=== PATIENT | male | born 1950 | race Hispanic/Latino ===

== ENCOUNTER 2019-01-14 07:24 | Day surgery (SDC) | payer BC ==
[2019-01-01 11:03] VITALS: BMI 25.8
[2019-01-14] MEDS ORDERED: Bupivacaine 0.5% 50 ML IJ ONE ×2 (07:42→10:28)
[2019-01-14] MEDS ORDERED: Midazolam 2 MG/2 ML VIAL ONE (09:49)
[2019-01-14] MEDS ORDERED: Succinylcholine 200 mg/10 ml Inj IV ONE (09:49)
[2019-01-14] MEDS ORDERED: Propofol 10 mg/ml Inj (20 ML) ONE (09:49)
[2019-01-14] MEDS ORDERED: Rocuronium 10 mg/ml (5 ml) ONE ×2 (10:12→10:43)
[2019-01-14] MEDS ORDERED: ePHEDrine 50 mg/ml Inj ONE (10:19)
[2019-01-14] MEDS ORDERED: CeFAZolin 1 gm in NS 100ml IVPB ONE (10:26)
[2019-01-14] MEDS ORDERED: Esmolol 100 mg/10ml Inj IV ONE (10:37)
[2019-01-14] MEDS ORDERED: Neostigmine Methylsulfate 3mg/3ml Syringe IV ONE (10:40)
[2019-01-14] MEDS ORDERED: Desflurane Inhalation Anesthetic Liq (240 ml) ONE (10:42)
[2019-01-14] MEDS ORDERED: Oxycodone/Acetaminophen 5/325 mg Tab PO PRN (12:31)
--- NOTE | 2019-01-14 12:34 | PCM.SURG1 ---
Surgeon's Initial Post Op Note - Surgeon's Notes Surgeon: Dr. Key [employer] Operator: Tatyana Johns, PGY-2; Shubham Shabazz PGY-1, OMS -3 Type of Anesthesia: General Endo Anesthesia Administered By: Dr. Alvarado Pre-Operative Diagnosis: Recurrent bilateral inguinal hernias Operative Findings: See op report Post-Operative Diagnosis: Bilateral inguinal hernias Operation Performed: Laparoscopic bilateral inguinal hernia repair with mesh Specimen/Specimens Removed: None Estimated Blood Loss: EBL {In ML}: 5 Blood Products Given: N/A Drains Used: No Drains Post-Op Condition: Good Date of Surgery/Procedure: 01/14/19 Time of Surgery/Procedure: 13:55
[2019-01-14] MEDS ORDERED: HYDROmorphone 0.5 mg/0.5 ml ISec IVP PRN (12:47)
[2019-01-14] MEDS ORDERED: Sodium Chloride 0.9% 1,000 ML IV SCH (13:00)
[2019-01-14 14:02] VITALS: RESP 18; TEMP 97.8
[2019-01-14] MEDS ORDERED: Oxycodone/Acetaminophen 5/325 mg Tab ONE (15:21)
[2019-01-14] MEDS ORDERED: Oxycodone/Acetaminophen 5/325 mg Tab PO ONE (15:24)
[2019-01-14 17:33] VITALS: BP 132/70; PULSE 92; O2SAT 95
--- NOTE | 2019-01-15 00:40 | OP ---
PROCEDURE DATE: 01/14/2019 SURGEON: Alden Key MD [facility] [employer] MA[employer]GER: Tatyana Johns, PGY-2, Shubham Gamble, PGY-1, Namrata Rosa OMS-3 ANESTHESIOLOGIST: Cyrus Alvarado MD ANESTHESIA: General endotracheal. PREOPERATIVE DIAGNOSIS: Recurrent bilateral inguinal hernias. POSTOPERATIVE DIAGNOSIS: Recurrent incarcerated bilateral inguinal hernias. FINDINGS: Fat-containing incarcerated bilateral inguinal hernias SPECIMEN: None. BLOOD LOSS: 5 mL. DRAINS: None. COMPLICATIONS: None. DESCRIPTION OF PROCEDURE: Mr. Jeb Riojas is a 68-year-old male who was seen in the office due to recurrence of bilateral inguinal hernias s/p previous repair. The patient was evaluated and deemed would be a candidate for laparoscopic bilateral inguinal hernia repair with possible mesh. The patient was consented for the same. All risks and benefits discussed and all questions were answered prior to the procedure. The patient was brought into the operating room and laid supine upon the operating table. A time-out was performed identifying the patient, procedure, and sites. The patient was prepped and draped in the usual sterile fashion. Local anesthesia was infiltrated and a supraumbilical incision was made. Dissection was carried down to the fascia of the supraumbilical stalk. A 12-mm trocar was introduced. A laparoscope was introduced and the abdominal cavity was evaluated. No abnormalities were noted. A left-sided 5-mm trocar was then introduced. The inguinal hernias were evaluated. The posterior leaflet of the peritoneum was scored and dissected to expose the fascial defect, the hernia was reduced and a large 4.3 x 6.3 mesh was placed. The peritoneum was then tacked into place at the medial aspect. The peritoneum was tacked in place over the mesh with good hemostasis. A 5-mm trocar was introduced on the right side lateral to the umbilicus and the right-sided hernia was evaluated. The posterior leaflet of the peritoneum was dissected free and the hernia was reduced. A large 4.3 x 6.3 mesh was placed and tacked into position at the medial aspect. The posterior leaflet of the peritoneum was then tacked into place over the mesh. Floseal was applied to achieve hemostasis. The intraabdominal cavity was re-evaluated, no bleeding or abnormalities were noted. All sponges, sutures, and tools were declared to be correct at the end of the procedure. Pneumoperitoneum was removed. The supraumbilical port fascia was closed using a UR-46 suture in a figure of eight configuration with good approximation, the skin was then closed with 4-0 Monocryl in a running subcuticular fashion. All other port skin incisions were closed with 4-0 Moncryl. Surgical glue was then applied. Good hemostasis was noted. The patient was extubated and taken to the postanesthesia care unit in stable position. Tatyana Johns DO Alden Key MD LES
== END 2019-01-14 17:30 | disposition home or self-care (01) ==
LOC: SDS 07:24
PROVIDERS: ATTEND General Practice
DX: K40.01 Bilateral inguinal hernia, with obstruction, without gangrene, recurrent (principal); I10 Essential (primary) hypertension; K13.0 Diseases of lips; N52.9 Male erectile dysfunction, unspecified